=== PATIENT | female | born 1950 | race Caucasian/White ===

== ENCOUNTER 2020-04-02 08:27 | Emergency (ER) | payer MEDICARE, OTHER ==
[~2020-04-02] VITALS: Ht 157.5 cm; Wt 63.6 kg
[2020-04-02 08:51] VITALS: BP 139/68
[2020-04-02] MEDS ORDERED: CEPH250T PO (09:31)
== END 2020-04-02 09:55 | disposition home or self-care (01) ==
LOC: ER 08:28
DX: Z48.02 Encounter for removal of sutures (principal); Z85.9 Personal history of malignant neoplasm, unspecified; Z79.899 Other long term (current) drug therapy
CPT/HCPCS: 99283

== ENCOUNTER 2022-01-21 08:23 | Day surgery (SDC) | payer MEDICARE, OTHER ==
[~2022-01-21] VITALS: Ht 157.5 cm; Wt 68.2 kg
[2022-01-21] MEDS ORDERED: LORA-512 PO (08:48)
[2022-01-21] MEDS ORDERED: LEVO125T68 PO (08:48)
[2022-01-21] MEDS ORDERED: CALC600T35 PO (08:48)
[2022-01-21] MEDS ORDERED: LACT1CAP86 PO (08:48)
[2022-01-21] MEDS ORDERED: CELE-193 PO (08:48)
[2022-01-21] MEDS ORDERED: TRAM50TA2 PO (08:48)
[2022-01-21] MEDS ORDERED: normal saline 1000ml 1,000 ML IV SCH (08:55)
[2022-01-21 09:00] VITALS: BP 135/69
[2022-01-21 09:28] LABS: BASOPHILS # (AUTO) 0.1 X10'3 (0-0.2); BASOPHILS % (AUTO) 1.6 % (0-1); EOSINOPHILS # (AUTO) 0.1 X10'3 (0-0.9); HEMATOCRIT 34.1 % (35.0-45.0); HEMOGLOBIN 11.5 g/dl (12.0-16.0); LYMPHOCYTES # (AUTO) 0.9 X10'3 (1.1-4.8); LYMPHOCYTES % (AUTO) 19.1 % (21-51); MEAN CORPUSCULAR HEMOGLOBIN 33.1 PG (27.0-31.0); MEAN CORPUSCULAR HGB CONC 33.8 g/dL (33.0-36.5); MEAN CORPUSCULAR VOLUME 97.9 FL (78-98); MEAN PLATELET VOLUME 9.8 FL (7.4-10.4); MONOCYTES # (AUTO) 0.4 X10'3 (0-0.9); MONOCYTES % (AUTO) 7.6 % (2-12); NEUTROPHILS # (AUTO) 3.3 X10'3 (1.8-7.7); NEUTROPHILS % (AUTO) 69.7 % (42-75); PLATELET COUNT 339 X10'3 (140-440); RED BLOOD COUNT 3.48 X10'6 (4.20-5.60); RED CELL DISTRIBUTION WIDTH 12.7 % (11.5-14.5); WHITE BLOOD COUNT 4.8 X10'3 (4.5-11.0)
[2022-01-21] MEDS ORDERED: LIDOcaine 1% W/epiNEPHrine 1:100,000 20ml vial ONE (09:39)
[2022-01-21] MEDS ORDERED: heparin sodium, porcine/PF 100unit/ml 5ML syringe ONE (09:39)
[2022-01-21] MEDS ORDERED: midazolam 1 mg/ML 2ml injection ONE (09:40)
[2022-01-21] MEDS ORDERED: fentaNYL/PF 50MCG/1 ML 2ML syringe ONE (09:40)
[2022-01-21 09:43] LABS: ANION GAP 10 (8-16); BLOOD UREA NITROGEN 14 MG/DL (7-18); BUN/CREATININE RATIO 17.3 (6.6-38.0); CHLORIDE 108 MMOL/L (99-107); CREATININE 0.81 MG/DL (0.40-0.90); GLUCOSE 102 MG/DL (70-104); POTASSIUM 3.8 MMOL/L (3.5-5.1); SODIUM 143 MMOL/L (135-145); TOTAL CARBON DIOXIDE 25.3 MMOL/L (24-32)
[2022-01-21 09:44] LABS: ALBUMIN 3.8 G/DL (3.4-5.0); CALCIUM 8.7 MG/DL (8.5-10.1); eGFR 69 ML/MIN
[2022-01-21 10:50] VITALS: BP 108/59
[2022-01-21 11:05] VITALS: BP 124/61
[2022-01-21 11:20] VITALS: BP 103/47
[2022-01-21 11:35] VITALS: BP 118/55
== END 2022-01-21 12:00 | disposition home or self-care (01) ==
LOC: SSTAY O 08:23
PROVIDERS: ATTEND Preventive Medicine Aerospace Medicine
DX: C25.7 Malignant neoplasm of other parts of pancreas (principal); Z79.899 Other long term (current) drug therapy; Z98.890 Other specified postprocedural states
CPT/HCPCS: 36415; 36561; 76937; 77001; 80048; 85025; 85610; 87811; 99152; 99153; C1769; C1788; C1894; J1642; J2250; J3010; J3490; J7030; J7040; A4620